=== PATIENT | female | born 1935 | race Caucasian/White ===

== ENCOUNTER → 2016-12-14 | Outpatient (REF) | LOC: ZLAB.WCH 10:15 | DX: Z01.89 Encounter for other specified special examinations (principal) ==

== ENCOUNTER → 2017-10-13 | Outpatient (REF) | LOC: ZLAB.WCH 18:09 | DX: Z01.89 Encounter for other specified special examinations (principal) ==

== ENCOUNTER → 2019-01-31 | Outpatient (REF) | LOC: ZLAB.WCH 16:19 | DX: Z01.89 Encounter for other specified special examinations (principal) ==

== ENCOUNTER → 2019-06-19 | Outpatient (CLI) | payer MEDICARE, BC | LOC: COL.CARD 08:05 | DX: Z01.818 Encounter for other preprocedural examination (principal) ==

== ENCOUNTER → 2021-01-05 | Outpatient (CLI) | payer MEDICARE, BC | LOC: ZCOL.LAB 10:19 | DX: Z01.89 Encounter for other specified special examinations (principal) ==

== ENCOUNTER → 2021-01-05 | Outpatient (REF) | LOC: ZLAB.WCH 10:47 | DX: Z01.89 Encounter for other specified special examinations (principal) ==